=== PATIENT | male | born 1990 | race Caucasian/White ===

== ENCOUNTER 2018-03-17 18:14 | Emergency (ER) | payer BC ==
[2018-03-17 20:05] LABS: ABS Basophils 0 10^3/ul (0-0.2); ABS Eosinophils 0.1 10^3/ul (0-0.6); ABS Lymphocytes 1.4 10^3/ul (1.0-4.8); ABS Monocytes 0.3 10^3/ul (0-0.8); ABS Neutrophils 2.1 10^3/ul (1.5-7.7); ABS Nucleated RBC 0 10^3/ul; Eosinophil % 3.7 % (0-6); Hematocrit 43 % (42-52); Hemoglobin 14.7 g/dl (14.0-18.0); Lymphocyte % 34.6 % (25-47); Mean Corpuscular HGB Conc 34 g/dl (31-36); Mean Corpuscular Hemoglobin 31 pg (27-31); Mean Corpuscular Volume 91 fL (80-94); Mean Platelet Volume 8.2 um3 (7.4-10.4); Nucleated Red Blood Cells % 0.2; Platelet Count 204 10^3/ul (150-450); Red Blood Count 4.67 10^6/ul (4.00-5.40); Red Cell Distribution Width 13 % (10.5-15)
[2018-03-17 20:14] LABS: EGFR Non-African American 88.6 (>60)
--- NOTE | 2018-03-17 20:38 | RAD ---
INDICATION: Abdominal pain. COMPARISON: There are no prior studies available for comparison. TECHNIQUE: Supine and upright views of the abdomen were obtained. FINDINGS: The small bowel and colon appear nondistended. No free intraperitoneal air is seen. No abnormal calcifications are seen. IMPRESSION: NO EVIDENCE FOR OBSTRUCTION.
[2018-03-17] MEDS ORDERED: Bisacodyl SUPP* 10 MG SUPP PR ONE (20:57)
[2018-03-17] MEDS ORDERED: Magnesium CITRATE* 300 ML BTL PO ONE (20:58)
[2018-03-17 21:25] VITALS: BP 125/79
--- NOTE | 2018-03-17 21:30 | ED ---
Leroy Short Stephanie, scribed for Elma Reyes MD on 03/17/18 at 1938 . Abdominal Pain/Male - HPI Summary HPI Summary: The pt is a 27 y/o M presenting to the ED with c/o abd pain that began a few months ago. Symptoms include diarrhea and blood in stool. His pain is located in the LUQ. His symptoms are aggravated by food. - History of Current Complaint Chief Complaint: EDAbdPain Stated Complaint: ABD PAIN/DIARREAH [id number] Time Seen by Provider: 03/17/18 19:14 Hx Obtained From: Patient Onset/Duration: Gradual Onset, Lasting Weeks, Still Present Timing: Intermittent Severity Currently: Mild Pain Intensity: 5 Pain Scale Used: 0-10 Numeric Location: Discrete At: LUQ Radiates: No Aggravating Factor(s): Food Alleviating Factor(s): Nothing Associated Signs And Symptoms: Positive: Blood in Stool, Diarrhea - Allergies/Home Medications Allergies/Adverse Reactions: Allergies Allergy/AdvReac Type Severity Reaction Status Date / Time nut - unspecified Allergy Intermediate Swelling Verified 03/17/18 19:10 Of Face,Lips,& Throat peanut Allergy Anaphylatic Verified 03/17/18 19:10 Shock soy Allergy Swelling Verified 03/17/18 19:10 Of Face,Lips,& Throat PMH/Surg Hx/FS Hx/Imm Hx Sensory History: Denies: Hx Legally Blind EENT History: Denies: Hx Deafness - Surgical History Surgery Procedure, Year, and Place: NONE Infectious Disease History: No Infectious Disease History: Denies: Traveled Outside the [place] in Last 30 Days - Family History Known Family History: Negative: Renal Disease - Social History Occupation: Employed Full-time Lives: Alone Alcohol Use: Occasionally Hx Substance Use: No Substance Use Type: Reports: None Hx Tobacco Use: No Smoking Status (MU): Never Smoked Tobacco Have You Smoked in the Last Year: No Review of Systems Negative: Fever Positive: Abdominal Pain, Diarrhea, Other - blood in stool Negative: Slurred Speech All Other Systems Reviewed And Are Negative: Yes Physical Exam - Summary Physical Exam Summary: VITAL SIGNS: Reviewed. GENERAL: Patient is a well-developed and nourished MALE who is lying comfortable in the stretcher. Patient is not in any acute respiratory distress. HEAD AND FACE: No signs of trauma. No ecchymosis, hematomas or skull depressions. No sinus tenderness. EYES: PERRLA, EOMI x 2, No injected conjunctiva, no nystagmus. EARS: Hearing grossly intact. Ear canals and tympanic membranes are within normal limits. MOUTH: Oropharynx within normal limits. NECK: Supple, trachea is midline, no adenopathy, no JVD, no carotid bruit, no c- spine tenderness, neck with full ROM. CHEST: Symmetric, no tenderness at palpation LUNGS: Clear to auscultation bilaterally. No wheezing or crackles. CVS: Regular rate and rhythm, S1 and S2 present, no murmurs or gallops appreciated. ABDOMEN: Soft, non-tender. No signs of distention. No rebound no guarding, and no masses palpated. Bowel sounds are normal. EXTREMITIES: FROM in all major joints, no edema, no cyanosis or clubbing. NEURO: Alert and oriented x 3. No acute neurological deficits. Speech is normal and follows commands. SKIN: Dry and warm Triage Information Reviewed: Yes Vital Signs On Initial Exam: Initial Vitals Temp Pulse Resp BP Pulse Ox 98.9 F 58 14 130/72 100 03/17/18 18:35 03/17/18 18:35 03/17/18 18:35 03/17/18 18:35 03/17/18 18:35 Vital Signs Reviewed: Yes Diagnostics - Vital Signs Vital Signs Temp Pulse Resp BP Pulse Ox 03/17/18 18:35 98.9 F 58 14 130/72 100 - Laboratory Result Diagrams: 03/17/18 19:45 03/17/18 19:45 Lab Statement: Any lab studies that have been ordered have been reviewed, and results considered in the medical decision making process. - Radiology Abd XRay Xray Interpretation: No Acute Changes Radiology Interpretation Completed By: Radiologist - NO EVIDENCE FOR OBSTRUCTION. ED physician has reviewed this report. Abdominal Pain Fem Course/Dx - Course Course Of Treatment: The pt is a 27 y/o M presenting to the ED with c/o abd pain that began a few months ago. Symptoms include diarrhea and blood in stool. His pain is located in the LUQ. His symptoms are aggravated by food. Abdomen Xray is consistant with constipation. The pt will be sent home with laxative. Possible IBS. - Diagnoses Provider Diagnoses: Constipation Discharge - Sign-Out/Discharge Documenting (check all that apply): Discharge/Admit/Transfer - Discharge - Discharge Plan Condition: Stable Disposition: HOME Patient Education Materials: Irritable Bowel Syndrome (ED), Constipation (ED) Referrals: [facility] [Outside] - 3 Days [facility] [Outside] - 3 Days Additional Instructions: Return to the ED for new or worsening symptoms. The documentation as recorded by the Leroy aceves Stephanie accurately reflects the service I personally performed and the decisions made by me, Elma Reyes MD.
== END 2018-03-17 21:24 | disposition home or self-care (01) ==
LOC: ED 18:14
DX: K59.00 Constipation, unspecified (principal)
CPT/HCPCS: 36415; 74019; 80053; 83690; 85025; 86140; 99282; A9270-GY